=== PATIENT | female | born 1950 | race Caucasian/White ===

== ENCOUNTER 2017-05-18 07:15 | Emergency (ER) | payer BC ==
[2017-05-18 07:24] VITALS: BP 161/77; PULSE 88; TEMP 97.8; BMI 27.4
[2017-05-18 07:41] LABS: EOS % 4.5 % (0-4.5); HEMATOCRIT 39.7 % (32.4-45.2); HEMOGLOBIN 13.3 GM/dl (10.7-15.3); LYMPH % 20.7 % (8-40); MCH 28.1 pg (25.7-33.7); MCHC 33.5 g/dl (32.0-36.0); MEAN PLT VOLUME 8.4 fl (7.5-11.1); MONO % 4.7 % (3.8-10.2); NEUT % 68.1 % (42.8-82.8); PLATELET COUNT 272 K/MM3 (134-434); RBC 4.73 M/mm3 (3.60-5.2); RDW 13.7 % (11.6-15.6); WHITE BLOOD COUNT 9.8 K/mm3 (4.0-10.8)
--- NOTE | 2017-05-18 07:48 | PDOC ---
History of Present Illness - General Chief Complaint: Pain, Acute Stated Complaint: RLQ PAIN Time Seen by Provider: 05/18/17 07:21 - History of Present Illness Initial Comments: 05/18/17 07:47 66 F with h/o HTN, chronic back pain, presenting with RLQ pain. Pt states pain started 2 days ago. It is waxing and waning, worse with standing and walking. Alleviated with lying flat. Denies feeling any protruding masses. States that the pain came on suddenly. Denies any heavy lifting or strenuous exercise that might have triggered it. Denies N/V/D/constipation. Denies F/C. Denies dysuria. Pt has had prior hysterectomy, no other abdominal surgeries. 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) HTN: Yes Hypercholesterolemia: Yes Liver Disease: No Seizures: No Thyroid Disease: No - Surgical History Abdominal Surgery: No Appendectomy: No Cardiac Surgery: No Cholecystectomy: No Lung Surgery: No Neurologic Surgery: No - Suicide/Smoking/Psychosocial Hx Smoking History: Current every day smoker Have you smoked in the past 12 months: Yes Number of Cigarettes Smoked Daily: 6 Information on smoking cessation initiated: Yes 'Breaking Loose' booklet given: 05/18/17 Hx Alcohol Use: No Drug/Substance Use Hx: No Substance Use Type: None Hx Substance Use Treatment: No Review of Systems - Review of Systems Comments:: 05/18/17 08:33 "GENERAL/CONSTITUTIONAL: No fever or chills. No weakness. HEAD, EYES, EARS, NOSE AND THROAT: No change in vision. No ear pain or discharge. No sore throat. CARDIOVASCULAR: No chest pain or shortness of breath. RESPIRATORY: No cough, wheezing, or hemoptysis. GASTROINTESTINAL: +RLQ pain, No nausea, vomiting, diarrhea or constipation. GENITOURINARY: No dysuria, frequency, or change in urination. MUSCULOSKELETAL: No joint or muscle swelling or pain. No neck or back pain. SKIN: No rash NEUROLOGIC: No headache, vertigo, loss of consciousness, or change in strength/ sensation. ENDOCRINE: No increased thirst. No abnormal weight change. HEMATOLOGIC/LYMPHATIC: No anemia, easy bleeding, or history of blood clots. ALLERGIC/IMMUNOLOGIC: No hives or skin allergy. " *Physical Exam - Vital Signs Last Vital Signs Temp Pulse Resp BP Pulse Ox 97.8 F 88 16 161/77 100 05/18/17 07:20 05/18/17 07:20 05/18/17 07:20 05/18/17 07:20 05/18/17 07:20 - Physical Exam Comments: 05/18/17 08:33 "GENERAL: Awake, alert, and fully oriented, in no acute distress HEAD: No signs of trauma EYES: PERRLA, EOMI, sclera anicteric, conjunctiva clear ENT: Auricles normal inspection, hearing grossly normal, nares patent, oropharynx clear without exudates. Moist mucosa NECK: Nontender, no stepoffs, Normal ROM, supple, no lymphadenopathy, JVD, or masses LUNGS: Breath sounds equal, clear to auscultation bilaterally. No wheezes, and no crackles HEART: Regular rate and rhythm, normal S1 and S2, no murmurs, rubs or gallops ABDOMEN: + RLE tenderness, normoactive bowel sounds. No guarding, no rebound. No masses EXTREMITIES: Normal range of motion, no edema. No clubbing or cyanosis. No cords, erythema, or tenderness NEUROLOGICAL: Cranial nerves II through XII intact. 5/5 strength and sensation in all extremities, Normal speech, normal gait, normal cerebellar function SKIN: Warm, Dry, normal turgor, no rashes or lesions noted. " ED Treatment Course - LABORATORY CBC & Chemistry Diagram: 05/18/17 07:35 05/18/17 07:35 Medical Decision Making - Medical Decision Making 05/18/17 08:33 66 F with RLQ pain x 2 days. Appy vs colitis vs constipation vs hernia. Pt with no obstructive symptoms, no signs of systemic infection. - Labs, UA - CTAP 05/18/17 11:54 CT negative for appy. L renal cyst noted, pt informed of result Pt reassessed - has minimal pain, tolerating PO. Pt is well appearing, with normal vitals. Clinically stable for DC at this time. I discussed the physical exam findings, ancillary test results and final diagnoses with the patient. I answered all of the patient's questions. The patient was satisfied with the care received and felt comfortable with the discharge plan and treatment plan. The patient agrees to follow up with the primary care physician within 24-72 hours. *DC/Admit/Observation/Transfer Diagnosis at time of Disposition: Abdominal pain - Discharge Dispostion Disposition: HOME Condition at time of disposition: Stable - Referrals Referrals: Kanu Mckinley MD [Primary Care Provider] - Espinoza Eduardo MD [Staff Physician] - - Patient Instructions Printed Discharge Instructions: DI for Abdominal Pain-Adult Additional Instructions: Your CT scan today showed a small cyst on your left kidney. You should have repeat imaging in about 12 months to be sure it doesn't change in size. Follow up with a chief of police within 1-2 weeks if you continue to have abdominal pain. Call the number provided if you do not already have one. You also need to have your blood pressure re-checked by your primary doctor, as it was slightly elevated today. Uncontrolled blood pressure can eventually lead to kidney disease, heart disease, other serious illness, disability, or even . If you experience worsening pain, vomiting, fevers, or any other concerning symptoms, return to the ER immediately. - Post Discharge Activity - Attestations Physician Attestion: 05/18/17 11:57 I, Dr. Mauricio Jacobs MD, attest that this document has been prepared under my direction and personally reviewed by me in its entirety. I further attest, that it accurately reflects all work, treatment, procedures and medical decision -making performed by me.
[2017-05-18 07:52] LABS: URINE APPEARANCE Clear; URINE BILIRUBIN Negative (NEGATIVE); URINE BLOOD Negative (NEGATIVE); URINE GLUCOSE (UA) Negative (NEGATIVE); URINE KETONE Negative (NEGATIVE); URINE LEUK ESTERASE Negative (NEGATIVE); URINE NITRITE Negative (NEGATIVE); URINE UROBILINOGEN 0.2 (0.2-1.0)
[2017-05-18 07:59] LABS: URINE COLOR YELLOW; URINE PROTEIN 1+ (NEGATIVE)
[2017-05-18 08:02] LABS: ALBUMIN 4.2 g/dl (3.5-5.0); ALK PHOS 114 U/L (32-92); ANION GAP 6 (8-16); BLOOD UREA NITROGEN 24 mg/dl (7-18); CALCIUM 9.4 mg/dl (8.4-10.2); CHLORIDE 105 mmol/L (98-107); CO2 26 mmol/L (22-28); CREATININE 1.4 mg/dl (0.6-1.3); GLUCOSE,RANDOM 195 mg/dl (74-106); POTASSIUM 3.8 mmol/L (3.5-5.1); SGOT/AST 18 U/L (10-42); SGPT/ALT 17 U/L (10-40); SODIUM 137 mmol/L (136-145); TOT PROT 7.4 g/dl (6.4-8.3)
[2017-05-18 08:20] LABS: BILIRUBIN,TOTAL < 0.5 mg/dl (0.2-1.0)
[2017-05-18 08:33] LABS: EPI CELLS NONE SEEN /HPF; URINE BACTERIA NONE SEEN /hpf (NEGATIVE); URINE RBC NONE SEEN /hpf (0-3); URINE WBC 0-3 (0-5)
== END 2017-05-18 12:02 | disposition home or self-care (01) ==
LOC: FER 07:15
DX: R10.31 Right lower quadrant pain (principal)
CPT/HCPCS: 36415; 74177-TC; 80053; 81003; 81015; 85025; 99282-25

== ENCOUNTER → 2023-07-12 | Day surgery (SDC) | payer OTHER, MEDICARE ==
[2023-07-07 09:30] VITALS: BMI 29.0
[~2023-07-12] MED LIST: ACETAMINOPHEN 325 MG TABLET (FP) PO PRN; CYCLOPENTOLATE HCL 1% OPHTH SOLN 2 ML BOTTLE ONE; KETOROLAC TROMETHAMINE 0.5% EYE DROP 1 DROP DROPS ONE; LIDOCAINE HCL/PF 1% SDV 5ML VIAL ONE; LIDOCAINE HCL/PF 2% SDV 5ML VIAL ONE; MIDAZOLAM HCL 2 MG/2 ML SINGLE DOSE VIAL ONE; OFLOXACIN 0.3% OPHTHALMIC SOLUTION 5 ML BOTTLE ONE; PHENYLEPHRINE 2.5% OPTHALMIC DROP 2ML BOTTLE ONE; POVIDONE-IODINE 5% OPHTHALMIC PREP 30 ML SOLUTION ONE; TETRACAINE 0.5% OPHTH SOLN 2 ML BOTTLE ONE; TROPICAMIDE 1% OPHTH SOLN 15 ML BOTTLE ONE; TRYPAN BLUE 0.5 ML DISP.SYRIN ONE
[2023-07-12] MEDS: CYCLOPENTOLATE HCL 1% OPHTH SOLN 2 ML BOTTLE OP SCH (10:30)
[2023-07-12] MEDS: TROPICAMIDE 1% OPHTH SOLN 15 ML BOTTLE OP SCH (10:30)
[2023-07-12] MEDS: KETOROLAC TROMETHAMINE 0.5% EYE DROP 1 DROP DROPS OP SCH (10:30)
[2023-07-12] MEDS: OFLOXACIN 0.3% OPHTHALMIC SOLUTION 5 ML BOTTLE OP SCH (10:30)
[2023-07-12] MEDS: PHENYLEPHRINE 2.5% OPHTH SOLN 15 ML BOTTLE OP SCH (10:30)
[2023-07-12] MEDS: TETRACAINE 0.5% OPHTH SOLN 2 ML BOTTLE OD ONE (12:11)
[2023-07-12] MEDS: POVIDONE-IODINE 5% OPHTHALMIC PREP 30 ML SOLUTION OD ONE (12:12)
[2023-07-12] MEDS: LIDOCAINE HCL 1% PRESERVATIVE FREE - 30ML VIAL IO ONE (12:17)
[2023-07-12] MEDS: BSS (NA/CA/MG/K) BALANCED SALT SOLUTION OPHTH SOLN 15 ML BOTTLE OD ONE (12:18)
[2023-07-12] MEDS: TRYPAN BLUE 0.5 ML DISP.SYRIN IO ONE (12:19)
[2023-07-12] MEDS: CHONDROITIN SU A/HYALUR SOD 1 KIT IO ONE ×2 (12:20→12:24)
[2023-07-12] MEDS: EPINEPHrine/PF 1 MG/1 ML (1:1,000) AMPULE IO ONE (12:29)
[2023-07-12 13:04] VITALS: PULSE 83; RESP 16
[2023-07-12 13:31] VITALS: BP 149/66; TEMP 97.5
== END | disposition home or self-care (01) ==
LOC: JASU-SURG 04:23
PROVIDERS: ATTEND Ophthalmology
PROC: 08RJ3JZ Replacement of Right Lens with Synthetic Substitute, Percutaneous Approach (ICD-10-PCS; principal; 2023-07-12 12:00)
DX: H26.9 Unspecified cataract (principal)
CPT/HCPCS: V2632